=== PATIENT | male | born 1945 | race Caucasian/White ===

== ENCOUNTER 2016-08-26 17:51 | Inpatient (IN) | payer MEDICARE ==
[~2016-08-26] VITALS: Ht 183.6 cm; Wt 91.0 kg
[2016-08-26] MEDS ORDERED: SIMV40TA3 PO (18:33)
[2016-08-26] MEDS ORDERED: ASPI-496 PO (18:33)
[2016-08-26] MEDS ORDERED: METF750T2 PO (18:33)
[2016-08-26] MEDS ORDERED: LISI-167 PO (18:33)
[2016-08-26] MEDS ORDERED: MONT10TA9 PO (18:33)
[2016-08-26] MEDS ORDERED: FEXO-64 PO (18:33)
[2016-08-26] MEDS ORDERED: MORPHINE SULFATE 4 MG/ML, 1ML ONE ×2 (18:57→21:11)
[2016-08-26] MEDS ORDERED: ONDANSETRON 2MG/ML, 2ML ONE (18:57)
[2016-08-26] MEDS: MORPHINE SULFATE 4 MG/ML, 1ML IVPush PRN ×2 (18:59→21:14)
[2016-08-26] MEDS ORDERED: SODIUM CHLORIDE 0.9% 1,000ML IVBOLUS ONE (19:00)
[2016-08-26] MEDS ORDERED: ONDANSETRON 2MG/ML, 2ML IVPush ONE (19:00)
[2016-08-26] MEDS ORDERED: SODIUM CHLORIDE FLUSH 10ML SYR IVF ONE (19:00)
[2016-08-26 19:12] LABS: HEMOGLOBIN 14.7 g/dL (13.7-18.0)
[2016-08-26 19:23] LABS: BLOOD UREA NITROGEN 26 mg/dL (7-18)
[2016-08-26 19:27] LABS: IS PT STATUS REG ER OR PRE ER? YES
[2016-08-26] MEDS ORDERED: ACETAMINOPHEN 325 MG TABLET PO PRN (21:30)
[2016-08-26] MEDS ORDERED: ONDANSETRON 2MG/ML, 2ML IVP PRN (21:30)
[2016-08-26] MEDS ORDERED: BISACODYL 10 MG SUPP PR PRN (21:30)
[2016-08-26] MEDS: SIMVASTATIN 40 MG TABLET PO SCH (21:30)
[2016-08-26] MEDS: HEPARIN 5,000 UNITS/ML, 1ML SQ SCH (21:30)
[2016-08-26] MEDS ORDERED: POLYETHYLENE GLYCOL 17 GM PACKET PO PRN (21:30)
[2016-08-26 22:19] VITALS: BP 178/82
[2016-08-26] MEDS: SODIUM CHLORIDE 0.9% 1,000 ML IV SCH (22:47)
[2016-08-26] MEDS ORDERED: DEXTROSE 4 GM TAB.CHEW PO PRN (23:00)
[2016-08-26] MEDS ORDERED: DEXTROSE 50%, 50ML SYRINGE IVPush PRN (23:00)
[2016-08-26] MEDS ORDERED: GLUCAGON 1 MG IM PRN (23:00)
[2016-08-27 01:00] VITALS: BP 138/78
[2016-08-27 01:11] LABS: IS PT STATUS REG ER OR PRE ER? NO
[2016-08-27] MEDS: HEPARIN 5,000 UNITS/ML, 1ML SQ SCH ×3 (05:30→21:19)
[2016-08-27 06:41] VITALS: BP 138/79
[2016-08-27 07:12] LABS: HEMOGLOBIN 13.1 g/dL (13.7-18.0)
[2016-08-27 07:18] LABS: ASPARTATE AMINO TRANSFERASE 15 U/L (15-37); BLOOD UREA NITROGEN 19 mg/dL (7-18)
[2016-08-27 07:24] LABS: IS PT STATUS REG ER OR PRE ER? NO
[2016-08-27] MEDS: MONTELUKAST 10 MG TABLET PO SCH (08:22)
[2016-08-27] MEDS: SENNA/DOCUSATE TABLET PO SCH (08:22)
[2016-08-27] MEDS: ASPIRIN 81 MG TABLET EC PO SCH (08:22)
[2016-08-27] MEDS: LORATADINE 10 MG TABLET PO SCH (08:22)
[2016-08-27] MEDS: LISINOPRIL 10 MG TABLET PO SCH (08:23)
[2016-08-27] MEDS: SODIUM CHLORIDE FLUSH 10ML SYR IVF SCH ×2 (08:23→21:18)
[2016-08-27] MEDS ORDERED: metFORMIN XR 500 MG TAB.ER.24H PO SCH (09:00)
[2016-08-27] MEDS ORDERED: LORATADINE 10 MG TABLET PO SCH (09:00)
[2016-08-27] MEDS: SODIUM CHLORIDE 0.9% 1,000 ML IV SCH (11:05)
[2016-08-27] MEDS: OXYcodone IR 5MG TABLET PO PRN ×3 (11:05→21:20)
[2016-08-27 14:32] VITALS: BP_SYST 130; BP_SYST 143; BP_SYST 149; BP_DIAS 77; BP_DIAS 80; BP_DIAS 83
[2016-08-27] MEDS ORDERED: metFORMIN 500 MG TABLET PO SCH (17:00)
[2016-08-27 18:38] VITALS: BP 136/76
[2016-08-27] MEDS: SIMVASTATIN 40 MG TABLET PO SCH (21:00)
[2016-08-28] MEDS: SODIUM CHLORIDE 0.9% 1,000 ML IV SCH (01:44)
[2016-08-28] MEDS: OXYcodone IR 5MG TABLET PO PRN ×3 (01:45→11:19)
[2016-08-28 01:55] VITALS: BP 146/75
[2016-08-28 01:56] VITALS: BP 154/88
[2016-08-28 01:57] VITALS: BP 151/91
[2016-08-28 02:00] VITALS: BP_SYST 146; BP_SYST 151; BP_SYST 154; BP_DIAS 75; BP_DIAS 88; BP_DIAS 91
[2016-08-28] MEDS: HEPARIN 5,000 UNITS/ML, 1ML SQ SCH (05:30)
[2016-08-28 06:44] VITALS: BP_SYST 161; BP_SYST 174; BP_DIAS 78; BP_DIAS 84; BP_DIAS 89
[2016-08-28] MEDS ORDERED: metFORMIN 500 MG TABLET PO SCH (08:00)
[2016-08-28] MEDS: ASPIRIN 81 MG TABLET EC PO SCH (08:49)
[2016-08-28] MEDS: MONTELUKAST 10 MG TABLET PO SCH (08:49)
[2016-08-28] MEDS: SENNA/DOCUSATE TABLET PO SCH (08:49)
[2016-08-28] MEDS: LISINOPRIL 10 MG TABLET PO SCH (08:49)
[2016-08-28] MEDS: LORATADINE 10 MG TABLET PO SCH (08:49)
[2016-08-28] MEDS: SODIUM CHLORIDE FLUSH 10ML SYR IVF SCH (08:49)
[2016-08-28] MEDS ORDERED: OXYC10TA6 PO (11:58)
== END 2016-08-28 12:20 | disposition home or self-care (01) | DRG 74 ==
LOC: ED 18:48 → EDIP 20:24 → 4WST 21:54 → DCLOUNGE 08-28 11:48
PROVIDERS: ADMIT Internal Medicine; ATTEND Internal Medicine
DX: G90.8 Other disorders of autonomic nervous system (principal); I47.1 Supraventricular tachycardia; N17.9 Acute kidney failure, unspecified; I10 Essential (primary) hypertension; E86.0 Dehydration; E78.5 Hyperlipidemia, unspecified; E11.9 Type 2 diabetes mellitus without complications; J45.909 Unspecified asthma, uncomplicated; S20.219A Contusion of unspecified front wall of thorax, initial encounter; S50.311A Abrasion of right elbow, initial encounter; Z66 Do not resuscitate; I95.1 Orthostatic hypotension
CPT/HCPCS: 36415; 70450; 80048; 80053; 82040; 82962; 83036; 84484; 85025; 93005; 93306; 93880; 96361; 96374; 96375; 96376; J2405; J7030

== ENCOUNTER 2017-01-04 07:24 | Emergency (ER) | payer MEDICARE ==
[~2017-01-04] VITALS: Ht 182.9 cm; Wt 100.0 kg
[~2017-01-04 07:24] MED LIST: ASPI-496 PO; FEXO-64 PO; LISI-167 PO; METF750T2 PO; MONT10TA9 PO; OXYC10TA6 PO; SIMV40TA3 PO
[2017-01-04] MEDS ORDERED: MECLIZINE CHEWABLE 25 MG TAB ONE (08:17)
[2017-01-04 08:30] LABS: ASPARTATE AMINO TRANSFERASE 20 U/L (15-37); BLOOD UREA NITROGEN 19 mg/dL (7-18)
[2017-01-04] MEDS ORDERED: MECLIZINE CHEWABLE 25 MG TAB PO ONE (08:30)
[2017-01-04] MEDS ORDERED: SODIUM CHLORIDE 0.9% 1,000ML IVBOLUS ONE (08:30)
[2017-01-04] MEDS ORDERED: SODIUM CHLORIDE FLUSH 10ML SYR IVF ONE (08:30)
[2017-01-04 08:36] LABS: IS PT STATUS REG ER OR PRE ER? YES
[2017-01-04 09:43] VITALS: BP 152/87
== END 2017-01-04 11:04 | disposition home or self-care (01) ==
LOC: ED 09:29
DX: R42 Dizziness and giddiness (principal); E11.9 Type 2 diabetes mellitus without complications; I10 Essential (primary) hypertension; Z87.891 Personal history of nicotine dependence
CPT/HCPCS: 36415; 80053; 81003; 83605; 84484; 85025; 93005; 96360; 99285; J7030

== ENCOUNTER 2017-03-02 09:55 | Day surgery (SDC) | payer MEDICARE ==
[2017-03-02] MEDS ORDERED: LIDOCAINE 2%, 20ML ONE (10:47)
== END 2017-03-02 11:24 ==
LOC: CACL 09:55
PROVIDERS: ATTEND Internal Medicine Cardiovascular Disease
DX: R55 Syncope and collapse (principal); F17.210 Nicotine dependence, cigarettes, uncomplicated; E11.9 Type 2 diabetes mellitus without complications; E78.5 Hyperlipidemia, unspecified; Z79.82 Long term (current) use of aspirin; J45.909 Unspecified asthma, uncomplicated; I10 Essential (primary) hypertension
CPT/HCPCS: 33282; C1764; J3490

== ENCOUNTER → 2017-03-20 | Outpatient (CLI) | payer MEDICARE ==
[~2017-03-20] MED LIST changes: +REGADENOSON 0.4 MG/5 ML SYRINGE ONE
== END | disposition home or self-care (01) ==
LOC: CFH 07:51
PROVIDERS: ATTEND Internal Medicine Cardiovascular Disease
DX: R07.89 Other chest pain (principal)
CPT/HCPCS: 78452; 93017; A9502; J2785

== ENCOUNTER 2017-05-10 12:45 | Emergency (ER) | payer MEDICARE ==
[~2017-05-10] VITALS: Ht 182.9 cm; Wt 102.0 kg
[~2017-05-10 12:45] MED LIST changes: -REGADENOSON 0.4 MG/5 ML SYRINGE ONE
[2017-05-10] MEDS ORDERED: ASPIRIN 81 MG TABLET CHEW PO ONE (13:30)
[2017-05-10] MEDS ORDERED: SODIUM CHLORIDE FLUSH 10ML SYR IVF ONE (13:30)
[2017-05-10] MEDS ORDERED: SODIUM CHLORIDE 0.9% 1,000ML IVBOLUS ONE (13:30)
[2017-05-10 13:43] LABS: HEMATOCRIT 45.5 % (39.2-51.8); HEMOGLOBIN 15.3 g/dL (13.7-18.0); WHITE BLOOD COUNT 8.4 x10^3/uL (3.4-10)
[2017-05-10 13:54] LABS: BLOOD UREA NITROGEN 18 mg/dL (7-18)
[2017-05-10 13:59] LABS: IS PT STATUS REG ER OR PRE ER? YES
[2017-05-10 14:42] VITALS: BP 174/75
== END 2017-05-10 16:52 | disposition home or self-care (01) ==
LOC: ED 13:21
DX: R55 Syncope and collapse (principal); I10 Essential (primary) hypertension; E11.9 Type 2 diabetes mellitus without complications
CPT/HCPCS: 36415; 71020; 80048; 82040; 83880; 84484; 85025; 93005; 96360; 99285; J7030

== ENCOUNTER 2017-05-17 09:27 | Observation (INO) | payer MEDICARE ==
[~2017-05-17] VITALS: Ht 182.9 cm; Wt 101.4 kg
[2017-05-17] MEDS: SODIUM CHLORIDE 0.9% 1,000 ML IV SCH ×3 (09:41→20:59)
[2017-05-17 09:44] VITALS: BP 200/103
[2017-05-17] MEDS ORDERED: IRBE300T40 PO (09:56)
[2017-05-17] MEDS ORDERED: ALBU8.5H8 INH (09:58)
[2017-05-17] MEDS ORDERED: CEFAZOLIN PMX 1GM/50ML 50 ML IVPB ONE (10:00)
[2017-05-17] MEDS ORDERED: FENTANYL PF 100 MCG/2ML ONE (10:32)
[2017-05-17] MEDS ORDERED: MIDAZOLAM 1 MG/ML, 5ML ONE ×2 (10:33→11:14)
[2017-05-17] MEDS ORDERED: CEFAZOLIN 1,000 MG ONE (10:33)
[2017-05-17] MEDS ORDERED: LIDOCAINE 2%, 20ML ONE (10:33)
[2017-05-17] MEDS ORDERED: CEFAZOLIN PMX 1GM/50ML 50 ML ONE (10:33)
[2017-05-17] MEDS ORDERED: DIPHENHYDRAMINE 50 MG/ML, 1ML ONE (11:08)
[2017-05-17] MEDS ORDERED: ENALAPRILAT 1.25 MG/ML, 2ML ONE (11:43)
[2017-05-17] MEDS ORDERED: ZOLPIDEM 5MG TABLET PO PRN (12:00)
[2017-05-17] MEDS ORDERED: HYDROcodone/APAP 5/325 TABLET PO PRN (12:00)
[2017-05-17] MEDS ORDERED: ACETAMINOPHEN 325 MG TABLET PO PRN (12:00)
[2017-05-17] MEDS ORDERED: ALBUTEROL HFA 90 MCG/SPRAY INH PRN (12:00)
[2017-05-17 12:33] VITALS: BP 147/99
[2017-05-17 18:37] VITALS: BP_SYST 105
[2017-05-17] MEDS: CEFAZOLIN PMX 1GM/50ML 50 ML IVPB SCH (19:43)
[2017-05-17] MEDS: SODIUM CHLORIDE FLUSH 10ML SYR IVF SCH (20:54)
[2017-05-17] MEDS ORDERED: SIMVASTATIN 40 MG TABLET PO SCH (21:00)
[2017-05-18 00:43] VITALS: BP 122/76
[2017-05-18] MEDS: CEFAZOLIN PMX 1GM/50ML 50 ML IVPB SCH (02:31)
[2017-05-18 07:15] VITALS: BP 124/79
[2017-05-18] MEDS ORDERED: metFORMIN XR 500 MG TAB.ER.24H PO SCH (08:00)
[2017-05-18] MEDS: SODIUM CHLORIDE FLUSH 10ML SYR IVF SCH (08:14)
[2017-05-18] MEDS: SODIUM CHLORIDE 0.9% 1,000 ML IV SCH (08:14)
[2017-05-18] MEDS ORDERED: ACET325T14 PO (08:15)
[2017-05-18] MEDS ORDERED: IRBE300T40 PO (08:15)
[2017-05-18] MEDS ORDERED: IRBESARTAN 300 MG TABLET PO SCH (09:00)
[2017-05-18] MEDS ORDERED: MONTELUKAST 10 MG TABLET PO SCH (09:00)
[2017-05-18] MEDS ORDERED: ASPIRIN 81 MG TABLET EC PO SCH (09:00)
== END 2017-05-18 10:12 | disposition home or self-care (01) ==
LOC: CACL 09:27 → ORIP 11:53 → 5SO 12:18 → DCLOUNGE 05-18 10:03
PROVIDERS: ADMIT Internal Medicine Cardiovascular Disease; ATTEND Internal Medicine Cardiovascular Disease
DX: I49.5 Sick sinus syndrome (principal); R55 Syncope and collapse; I10 Essential (primary) hypertension; E78.5 Hyperlipidemia, unspecified
CPT/HCPCS: 33208; 33284; 71010; 96365; 96375; 99156; 99157; C1779; C1785; G0378; J0690; J1200; J2250; J3010; J3490

== ENCOUNTER 2019-05-10 18:39 | Emergency (ER) | payer MEDICARE ==
[~2019-05-10] VITALS: Ht 182.9 cm; Wt 99.5 kg
[~2019-05-10 18:39] MED LIST changes: +ACET325T14 PO; +ALBU8.5H8 INH; +IRBE300T40 PO; -METF750T2 PO; +METF750T42 PO
--- NOTE | 2019-05-10 19:32 | NUR ---
PT C/O DIZZINESS AT WORK TODAY WHEN HE BENT OVER AND THEN STOOD UP. HX VERTIGO, BUT STATES FEELS DIFFERENT THAN THAT. CONNECTED TO MONITORING. CALL LIGHT IN REACH. AWAITING ORDERS AT THIS TIME.
--- NOTE | 2019-05-10 21:07 | NUR ---
INTERROGATING PACEMAKER AT THIS TIME.
[2019-05-10 21:29] LABS: BASOPHILS # (AUTO) 0.06 x10^3/uL (0-0.1); BASOPHILS % (AUTO) 1 % (0-1); EOSINOPHILS # (AUTO) 0.36 x10^3/uL (0-0.4); EOSINOPHILS % (AUTO) 3 % (1-7); LYMPHOCYTES # (AUTO) 2.88 x10^3/uL (1-3.4); LYMPHOCYTES % (AUTO) 27 % (22-44); MD NO; MEAN CORPUSCULAR HEMOGLOBIN 28.9 pg (27.5-34.5); MEAN CORPUSCULAR HGB CONC 32.3 g/dL (33.2-36.2); MEAN CORPUSCULAR VOLUME 89.4 fL (81-97); MEAN PLATELET VOLUME 8.6 fL (7.4-10.4); MONOCYTES # (AUTO) 0.68 x10^3/uL (0.2-0.8); MONOCYTES % (AUTO) 6 % (2-9); NEUTROPHILS # (AUTO) 6.84 x10^3/uL (1.8-6.8); NEUTROPHILS % (AUTO) 63 % (42-75); PLATELET COUNT 253 x10^3/uL (130-400); RED CELL DISTRIBUTION WIDTH 14.9 % (9.4-14.8)
[2019-05-10 21:34] LABS: ANION GAP 6 mmol/L (5-15); CALCIUM 9.3 mg/dL (8.5-10.1); CHLORIDE 107 mmol/L (98-107)
[2019-05-10 21:39] LABS: CREATININE 1.56 mg/dL (0.7-1.3); TROPONIN I < 0.015 ng/mL (0.000-0.045)
[2019-05-10] MEDS ORDERED: SODIUM CHLORIDE FLUSH 10ML SYR IVF ONE (22:00)
--- NOTE | 2019-05-10 22:06 | NUR ---
PT RESTING COMFORTABLY ON GURNEY. JADA.
[2019-05-10 22:14] VITALS: BP 136/76
--- NOTE | 2019-05-10 22:53 | NUR ---
MD AT BEDSIDE TO UPDATE PT ON POC.
== END 2019-05-10 23:19 | disposition home or self-care (01) ==
LOC: ED 23:15
DX: R55 Syncope and collapse (principal); R42 Dizziness and giddiness; R07.89 Other chest pain; I10 Essential (primary) hypertension; E11.9 Type 2 diabetes mellitus without complications; Z87.891 Personal history of nicotine dependence
CPT/HCPCS: 36415; 71045; 80048; 82040; 84484; 85025; 93005; 99284

== ENCOUNTER → 2019-06-30 | Outpatient (CLI) | payer MEDICARE | END | disposition home or self-care (01) | LOC: CFH 06:37 | PROVIDERS: ATTEND Physician Assistant Medical | DX: I35.0 Nonrheumatic aortic (valve) stenosis (principal); I11.9 Hypertensive heart disease without heart failure; R07.89 Other chest pain | CPT/HCPCS: 78452; 93017; 93306; A9502 ==